=== PATIENT | female | born 1980 | race Caucasian/White ===

== ENCOUNTER 2016-07-11 17:02 | Emergency (ER) | payer MEDICAID ==
--- NOTE | 2016-07-12 13:06 | ER ---
ADMIT: 07/11/2016 RM/LOC: ER [facility] MR#: [id number] [address] [id number] JOSEPH BRO [address] [place] [address] Emergency Room Report SEX: F AGE: 35 : 1980 DATE: 07/11/2016 HISTORY OF PRESENT ILLNESS: The patient is a 35-year-old female with no specific past medical history, came to the ER with chief complaint of decreased hearing in the left ear during the time in the last few months. The patient states she had similar symptoms in the past and her ear was cerumen impaction which was removed and she could hear better after that. The patient denies any discharge from the ear and denies any trauma to the ear. PHYSICAL EXAMINATION: GENERAL: The patient was in no pain or distress, afebrile VITAL SIGNS: Normal. HEAD AND NECK: The left ear is completely impacted with cerumen and occluded. Right ear is also impacted with cerumen, but the TM that is observed looks normal. Canals are nonerythematous. In the oropharynx, there is no erythema or exudate. LUNGS: Clear. NEUROLOGIC: Motor and sensory are normal. The rest of the neural exam is normal. EMERGENCY DEPARTMENT COURSE: Ears were irrigated and cerumen impaction was removed. Ears are reexamined. TMs are normal bilaterally. Canal is also normal. The patient also states she can hear well right now. The patient was discharged to home. The patient was advised to use Cerumenex drops as needed if there is cerumen impaction. Gagan Quarles MD/ carlos JOB #: [id number] CC: Gagan Quarles MD, Attending Physician Cj Gregg MD, Family Physician
== END 2016-07-11 18:27 | disposition home or self-care (01) ==
LOC: ER 17:02
PROC: 3E1B78Z Irrigation of Ear using Irrigating Substance, Via Natural or Artificial Opening (ICD-10-PCS; principal; 2016-07-11)
DX: H61.23 Impacted cerumen, bilateral (principal); Z79.899 Other long term (current) drug therapy